=== PATIENT | female | born 1980 ===

== ENCOUNTER 2018-04-07 11:00 | Emergency (ER) | payer OTHER ==
[~2018-04-07] VITALS: Ht 149.9 cm; Wt 885.9 kg
== END 2018-04-07 14:28 | disposition home or self-care (01) ==
LOC: ER 11:00
DX: L02.412 Cutaneous abscess of left axilla (principal)

== ENCOUNTER 2022-06-08 05:50 | Day surgery (SDC) | payer OTHER ==
[2022-06-08] MEDS ORDERED: NEXIUM 24HR20 MG PO (08:42)
== END 2022-06-08 10:00 | disposition home or self-care (01) ==
LOC: AMB-ENDOS 05:50
PROVIDERS: ATTEND Surgery
DX: K29.60 Other gastritis without bleeding (principal); K44.9 Diaphragmatic hernia without obstruction or gangrene; R10.13 Epigastric pain; E66.09 Other obesity due to excess calories